=== PATIENT | male | born 1955 | race Caucasian/White ===

== ENCOUNTER 2017-02-09 22:15 | Observation (INO) | payer MEDICARE, MEDICAID ==
[2017-02-09] MEDS ORDERED: Sodium Chloride 0.9% 1,000 ML IV STA (22:55)
--- NOTE | 2017-02-09 23:02 | ED PDOC ---
HPI: Abdomen Time Seen by Provider: 02/09/17 22:43 Chief Complaint (Nursing): Abdominal Pain Chief Complaint (Provider): abdominal pain History Per: Patient History/Exam Limitations: no limitations Onset/Duration Of Symptoms: Days (1) Current Symptoms Are (Timing): Still Present Location Of Pain/Discomfort: RUQ, Epigastric, LUQ Associated Symptoms: Nausea, Vomiting. denies: Fever, Chills Last Bowel Movement: Today Additional History Per: Patient Additional Complaint(s): 61 y/o male history of gastritis, hypertension, diabetes, asthma presents with upper abdominal pain x 1 day. Associated nausea, vomiting x 1. Patient states he ate spicy food last night for dinner, unknown if this triggered his pain. Denies fever, chest pain, shortness of breath, palpitations, changes in bowel movements, dyruia, hematuria. Past Medical History Reviewed: Historical Data, Nursing Documentation, Vital Signs Vital Signs: Last Vital Signs Temp 98.2 F 02/09/17 22:21 Pulse 86 02/09/17 22:21 Resp 16 02/09/17 22:21 BP 144/90 02/09/17 22:21 Pulse Ox 99 02/10/17 02:04 - Medical History PMH: Asthma, Diabetes, Gastritis, HTN - Surgical History Surgical History: No Surg Hx - Family History Family History: States: Unknown Family Hx - Living Arrangements Living Arrangements: With Family - Social History Alcohol: Occasional Drugs: Denies - Home Medications Home Medications: Ambulatory Orders Medication Instructions Recorded Amlodipine/Valsartan [Exforge 1 tab PO DAILY 02/10/17 10-320 mg Tablet] Aspirin [Lo-Dose Aspirin EC] 81 mg PO DAILY 02/10/17 Lansoprazole 30 mg PO DAILY 02/10/17 glyBURIDE [Micronase] 10 mg PO DAILY 02/10/17 - Allergies Allergies/Adverse Reactions: Allergies Allergy/AdvReac Type Severity Reaction Status Date / Time No Known Allergies Allergy Verified 02/09/17 22:30 Review of Systems ROS Statement: Except As Marked, All Systems Reviewed And Found Negative Gastrointestinal: Positive for: Nausea, Vomiting, Abdominal Pain Physical Exam - Reviewed Nursing Documentation Reviewed: Yes Vital Signs Reviewed: Yes - Physical Exam Appears: Positive for: Well, Non-toxic, No Acute Distress Head Exam: Positive for: ATRAUMATIC, NORMAL INSPECTION, NORMOCEPHALIC Skin: Positive for: Normal Color Eye Exam: Positive for: Normal appearance ENT: Positive for: Normal ENT Inspection Cardiovascular/Chest: Positive for: Regular Rate, Rhythm Respiratory: Positive for: Normal Breath Sounds Gastrointestinal/Abdominal: Positive for: Bowel Sounds, Soft, Tenderness (RUQ, epigastric, LUQ) Back: Positive for: Normal Inspection Extremity: Positive for: Normal ROM Neurologic/Psych: Positive for: Alert, Oriented - Laboratory Results Result Diagrams: 02/09/17 23:41 02/09/17 23:41 - ECG ECG: Positive for: Viewed By Me (reviewed by ED attending) ECG Rhythm: Positive for: Sinus Rhythm O2 Sat by Pulse Oximetry: 99 Pulse Ox Interpretation: Normal - Radiology X-Ray: Viewed By Me X-Ray Interpretation: No Acute Disease - Progress ED Course And Treament: labs, u/s, IV fluids, IV morphine, IV pepcid, IV zofran EXAM: US Abdomen Limited, Right Upper Quadrant CLINICAL HISTORY: 61 years old, male; Pain; Abdominal pain; Epigastric; Additional info: Abd pain , vomiting TECHNIQUE: Real-time ultrasound of the right upper quadrant with image documentation. COMPARISON: No relevant prior studies available. FINDINGS: Liver: The liver is heterogeneous in echogenicity and size measuring 18 cm in longitudinal dimension. No intrahepatic bile duct dilation. The main portal vein is patent. Gallbladder: No acute findings. No gallstones. Common bile duct: No stones. No dilation measuring 4 mm. Pancreas: Visualization of the pancreas is limited by overlying bowel gas. Right kidney: Unremarkable in echogenicity and size measuring 11.6 x 4.7 x 4.5 cm. No obstructing stones. No solid mass. No hydronephrosis. IMPRESSION: Fatty infiltration of an enlarged liver, as detailed above. Limited evaluation of the pancreas, secondary to overlying bowel gas On re-eval, patient still in pain; will order CT abd/pelvis as lipase elevated Patient states no recent alcohol intake EXAM: CT Abdomen and Pelvis With Intravenous Contrast CLINICAL HISTORY: 61 years old, male; Pain; Abdominal pain; Generalized; Additional info: Abd pain , elevated lipase TECHNIQUE: Axial computed tomography images of the abdomen and pelvis with intravenous contrast. This CT exam was performed using one or more of the following dose reduction techniques : automated exposure control, adjustment of the mA and/or kV according to patient size, and/ or use of iterative reconstruction technique. Coronal and sagittal reformatted images were created and reviewed. CONTRAST: 95 mL of [id number] administered intravenously. COMPARISON: CT ABD/PELV W/IV CONTR 06/11/2012 3:48:27 AM FINDINGS: Lower thorax: Trace bibasilar atelectasis. ABDOMEN: Liver: No acute findings. Gallbladder and bile ducts: The gallbladder is decompressed, without calcified stones. No significant intra- or extrahepatic biliary ductal dilation. Pancreas: Trace infiltration of the peripancreatic fat involving the head of the pancreas, less prominent than on previous examination performed in 06/11/2012. The pancreas otherwise enhances homogeneously, without ductal dilation or a discrete mass. Spleen: No acute findings. Adrenals: No acute findings. Kidneys and ureters: No acute findings. No hydronephrosis or renal calculi. No discrete solid mass. PELVIS: Bladder: No acute findings. Reproductive: No acute findings. Appendix: The air filled appendix is of normal caliber (series 3, image 114; series 601, image 55) . ABDOMEN and PELVIS: Stomach and bowel: No obstruction. No mucosal thickening. Peritoneum: No significant fluid collection. No free air. Lymph nodes: No pathologically enlarged lymph nodes. Vasculature: Calcified atherosclerotic disease. Bones: No acute fracture. IMPRESSION: Findings suggesting acute pancreatitis, involving the head of the pancreas, less severe than on previous examination performed in 2011. Additional nonacute findings, as detailed above. Patient educated on findings, to be admitted. Case discussed with Dr. Sherman, who admits for Dr. Jess Johns, for admission. Patient now tells nurse he had "5 Bernard drinks" over the weekend. Disposition - Clinical Impression Clinical Impression: Acute pancreatitis - Patient ED Disposition Is Patient to be Admitted: Yes - Disposition Disposition Time: 02:04 Condition: FAIR - Pt Status Changed To: Hospital Disposition Of: Inpatient - Admit Certification Admit to Inpatient:: After my assessment, the patient will require hospitalization for at least two midnights. This is because of the severity of symptoms shown, intensity of services needed, and/or the medical risk in this patient being treated as an outpatient.
--- NOTE | 2017-02-09 23:31 | US ---
EXAM: US Abdomen Limited, Right Upper Quadrant CLINICAL HISTORY: 61 years old, male; Pain; Abdominal pain; Epigastric; Additional info: Abd pain, vomiting TECHNIQUE: Real-time ultrasound of the right upper quadrant with image documentation. COMPARISON: No relevant prior studies available. FINDINGS: Liver: The liver is heterogeneous in echogenicity and size measuring 18 cm in longitudinal dimension. No intrahepatic bile duct dilation. The main portal vein is patent. Gallbladder: No acute findings. No gallstones. Common bile duct: No stones. No dilation measuring 4 mm. Pancreas: Visualization of the pancreas is limited by overlying bowel gas. Right kidney: Unremarkable in echogenicity and size measuring 11.6 x 4.7 x 4.5 cm. No obstructing stones. No solid mass. No hydronephrosis. IMPRESSION: Fatty infiltration of an enlarged liver, as detailed above. Limited evaluation of the pancreas, secondary to overlying bowel gas.
[2017-02-09 23:44] LABS: BASO # 0.1 K/uL (0.0-0.2); BASO % 0.3 % (0.0-2.0); EOS % 0.3 % (0.0-4.0); LYMPH # 1.6 K/uL (1.0-4.3); LYMPH % 10.9 % (20.0-40.0); MEAN CELL VOLUME 91.7 fl (80.0-94.0); MEAN CORPUSCULAR HEMOGLOBIN 32.3 pg (27.0-31.0); MEAN CORPUSCULAR HGB CONC 35.2 g/dL (33.0-37.0); MEAN PLATELET VOLUME 9.8 fl (7.2-11.7); MONO # 0.9 K/uL (0.0-0.8); MONO % 6.1 % (0.0-10.0); NEUT # 12.3 K/uL (1.8-7.0); NEUT % 82.4 % (50.0-75.0); RED CELL DISTRIBUTION WIDTH 12.9 % (11.5-14.5); WHITE BLOOD COUNT 14.9 K/uL (4.8-10.8)
[2017-02-09 23:54] LABS: ALB/GLOB RATIO 1.5 (1.0-2.1); ALKALINE PHOSPHATASE 80 U/L (38-126); ALT/SGPT 41 U/L (21-72); AST/SGOT 36 U/L (17-59); BILIRUBIN,TOTAL 1.2 mg/dl (0.2-1.3); BLOOD UREA NITROGEN 6 mg/dl (9-20); CALCIUM 10.3 mg/dL (8.4-10.2); CARBON DIOXIDE 24 mmol/L (22-30); CHLORIDE 91 mmol/L (98-107); GFR AFRICAN-AMERICAN > 60; GLUCOSE,RANDOM 180 mg/dL (75-110); LIPASE 493 U/L (23-300); POTASSIUM 4.2 MMOL/L (3.6-5.0); SODIUM 132 mmol/l (132-148); TOTAL PROTEIN 8.1 G/DL (6.3-8.2)
[2017-02-10] MEDS ORDERED: Iohexol 300 100 ML IJ ONE (00:40)
[2017-02-10] MEDS ORDERED: Sodium Chloride 0.9% 50 ML IV ONE (00:41)
[2017-02-10 01:06] LABS: URINE BILIRUBIN NEGATIVE (NEGATIVE); URINE BLOOD NEGATIVE (NEGATIVE); URINE COLOR STRAW (YELLOW); URINE GLUCOSE (UA) >=500 mg/dL (Normal); URINE KETONE TRACE mg/dL (NEGATIVE); URINE LEUKOCYTE ESTERASE NEG Leu/uL (Negative); URINE PROTEIN NEGATIVE (NEGATIVE); URINE UROBILINOGEN 0.2-1.0 mg/dL (0.2-1.0); WBC URINE < 1 /hpf (0-5)
--- NOTE | 2017-02-10 01:24 | CT ---
EXAM: CT Abdomen and Pelvis With Intravenous Contrast CLINICAL HISTORY: 61 years old, male; Pain; Abdominal pain; Generalized; Additional info: Abd pain, elevated lipase TECHNIQUE: Axial computed tomography images of the abdomen and pelvis with intravenous contrast. This CT exam was performed using one or more of the following dose reduction techniques: automated exposure control, adjustment of the mA and/or kV according to patient size, and/or use of iterative reconstruction technique. Coronal and sagittal reformatted images were created and reviewed. CONTRAST: 95 mL of [id number] administered intravenously. COMPARISON: CT ABD/PELV W/IV CONTR 06/11/2012 3:48:27 AM FINDINGS: Lower thorax: Trace bibasilar atelectasis. ABDOMEN: Liver: No acute findings. Gallbladder and bile ducts: The gallbladder is decompressed, without calcified stones. No significant intra- or extrahepatic biliary ductal dilation. Pancreas: Trace infiltration of the peripancreatic fat involving the head of the pancreas, less prominent than on previous examination performed in 06/11/2012. The pancreas otherwise enhances homogeneously, without ductal dilation or a discrete mass. Spleen: No acute findings. Adrenals: No acute findings. Kidneys and ureters: No acute findings. No hydronephrosis or renal calculi. No discrete solid mass. PELVIS: Bladder: No acute findings. Reproductive: No acute findings. Appendix: The air filled appendix is of normal caliber (series 3, image 114; series 601, image 55) . ABDOMEN and PELVIS: Stomach and bowel: No obstruction. No mucosal thickening. Peritoneum: No significant fluid collection. No free air. Lymph nodes: No pathologically enlarged lymph nodes. Vasculature: Calcified atherosclerotic disease. Bones: No acute fracture. IMPRESSION: Findings suggesting acute pancreatitis, involving the head of the pancreas, less severe than on previous examination performed in 2011. Additional nonacute findings, as detailed above.
[2017-02-10 02:05] LABS: ALCOHOL SERUM < 10 mg/dl (0-10)
[2017-02-10] MEDS: Lactated Ringer's 1,000 ML IV SCH ×6 (02:24→22:30)
[2017-02-10] MEDS: Sodium Chloride 0.9% 1,000 ML IV SCH ×3 (06:18→17:49)
[2017-02-10] MEDS: Insulin Regular 100 units/ml SC SCH ×4 (06:42→22:30)
[2017-02-10 07:07] LABS: HEMATOCRIT 40.9 % (35.0-51.0); MEAN CELL VOLUME 91.2 fl (80.0-94.0); MEAN CORPUSCULAR HEMOGLOBIN 31.9 pg (27.0-31.0); RED CELL DISTRIBUTION WIDTH 12.5 % (11.5-14.5); WHITE BLOOD COUNT 12.3 K/uL (4.8-10.8)
[2017-02-10 07:08] LABS: ALB/GLOB RATIO 1.5 (1.0-2.1); ALKALINE PHOSPHATASE 77 U/L (38-126); ALT/SGPT 36 U/L (21-72); AMYLASE 68 U/L (30-110); AST/SGOT 28 U/L (17-59); BILIRUBIN,TOTAL 1.2 mg/dl (0.2-1.3); BLOOD UREA NITROGEN 4 mg/dl (9-20); CALCIUM 9.7 mg/dL (8.4-10.2); CARBON DIOXIDE 27 mmol/L (22-30); CHLORIDE 94 mmol/L (98-107); CHOLESTEROL 252 mg/dL (0-199); GFR AFRICAN-AMERICAN > 60; GLUCOSE,RANDOM 142 mg/dL (75-110); LIPASE 333 U/L (23-300); SODIUM 131 mmol/l (132-148); TOTAL PROTEIN 7.2 G/DL (6.3-8.2)
[2017-02-10 07:21] LABS: T4 7.24 ug/dl (5.5-11.0)
--- NOTE | 2017-02-10 08:52 | CP.PCM.HP ---
History of Present Illness - History of Present Illness History of Present Illness: 61yo M with PMHx asthma, HTN, HLD, DM admitted for pancreatitis. c/o generalized abd pain x1 day a/w nausea/vomiting. Last episode of pancreatitis 4 years ago. Last EtOH use 2 weeks ago. PMHx: as above SHx: denies FHx: mother-pancreatic Ca, Father-HTN,DM Allergies: NKDA Social hx: denies x3 currently ED course: lipase 493 CBC, CMP IVF NS 1L bolus Zofran 4mg PO x1 pepcid 20mg IV x1 morphine 2mg IV x1 morphine 4mg IV x1 CT abd/pelvis- acute pancreatitis US abd RUQ-fatty liver UA neg Urine tox +cocaine alcohol quant neg troponin neg Present on Admission - Present on Admission Any Indicators Present on Admission: No Review of Systems - Constitutional Constitutional: absent: Chills, Fever - Cardiovascular Cardiovascular: absent: Chest Pain - Respiratory Respiratory: absent: Dyspnea - Gastrointestinal Gastrointestinal: Abdominal Pain, Nausea, Vomiting - Genitourinary Genitourinary: absent: Dysuria, Hematuria - Musculoskeletal Musculoskeletal: absent: Back Pain - Neurological Neurological: absent: Headaches Past Patient History - Past Medical History & Family History Past Medical History?: Yes - Past Social History Smoking Status: Former Smoker - CARDIAC Hx Cardiac Disorders: Yes (HTN) Hx Hypertension: Yes - PULMONARY Hx Respiratory Disorders: Yes Hx Asthma: Yes - NEUROLOGICAL Hx Neurological Disorder: No - HEENT Hx HEENT Problems: No - RENAL Hx Chronic Kidney Disease: No - ENDOCRINE/METABOLIC Hx Endocrine Disorders: Yes (DM, pancreatitis) Hx Diabetes Mellitus Type 2: Yes - HEMATOLOGICAL/ONCOLOGICAL Hx Blood Disorders: No - INTEGUMENTARY Hx Dermatological Problems: No - MUSCULOSKELETAL/RHEUMATOLOGICAL Hx Falls: No - GASTROINTESTINAL Hx Gastritis: Yes Hx Pancreatitis: Yes - GENITOURINARY/GYNECOLOGICAL Hx Genitourinary Disorders: No - PSYCHIATRIC Hx Substance Use: No - SURGICAL HISTORY Other/Comment: perirectal abcess - ANESTHESIA Hx Anesthesia: Yes Hx Anesthesia Reactions: No Meds Allergies/Adverse Reactions: Allergies Allergy/AdvReac Type Severity Reaction Status Date / Time No Known Allergies Allergy Verified 02/09/17 22:30 Physical Exam - Constitutional Appears: Non-toxic, No Acute Distress - Head Exam Head Exam: ATRAUMATIC, NORMAL INSPECTION - Eye Exam Eye Exam: Normal appearance - Neck Exam Neck exam: Positive for: Normal Inspection - Respiratory Exam Respiratory Exam: Clear to Auscultation Bilateral - Cardiovascular Exam Cardiovascular Exam: REGULAR RHYTHM - GI/Abdominal Exam GI & Abdominal Exam: Normal Bowel Sounds, Soft, Tenderness. absent: Distended, Guarding, Rebound, Rigid - Extremities Exam Extremities exam: Positive for: normal inspection. Negative for: pedal edema - Neurological Exam Neurological exam: Alert, Oriented x3 - Skin Skin Exam: Dry, Warm Results - Vital Signs Recent Vital Signs: Last Vital Signs Temp 98.6 F 02/10/17 08:29 Pulse 79 02/10/17 08:29 Resp 18 02/10/17 08:29 BP 160/90 H 02/10/17 08:29 Pulse Ox 95 02/10/17 08:29 - Labs Result Diagrams: 02/10/17 06:15 02/10/17 06:15 Labs: Laboratory Results - last 24 hr 02/10/17 02/10/17 02/10/17 01:58 06:00 06:15 WBC 12.3 H RBC 4.48 Hgb 14.3 Hct 40.9 MCV 91.2 MCH 31.9 H MCHC 35.0 RDW 12.5 Plt Count 164 Sodium Potassium Chloride Carbon Dioxide Anion Gap BUN Creatinine Est GFR ( Amer) Est GFR (Non-Af Amer) POC Glucose (mg/dL) 136 H Random Glucose Calcium Total Bilirubin AST ALT Alkaline Phosphatase Troponin I < 0.0120 Total Protein Albumin Globulin Albumin/Globulin Ratio Triglycerides Cholesterol LDL Cholesterol Direct HDL Cholesterol Amylase Lipase Thyroxine (T4) Alcohol, Quantitative < 10 02/10/17 06:15 WBC RBC Hgb Hct MCV MCH MCHC RDW Plt Count Sodium 131 L Potassium 4.0 Chloride 94 L Carbon Dioxide 27 Anion Gap 14 BUN 4 L Creatinine 0.6 L Est GFR ( Amer) > 60 Est GFR (Non-Af Amer) > 60 POC Glucose (mg/dL) Random Glucose 142 H Calcium 9.7 Total Bilirubin 1.2 AST 28 ALT 36 Alkaline Phosphatase 77 Troponin I Total Protein 7.2 Albumin 4.3 Globulin 2.9 Albumin/Globulin Ratio 1.5 Triglycerides 379 H Cholesterol 252 H LDL Cholesterol Direct 147 H HDL Cholesterol 64 Amylase 68 Lipase 333 H Thyroxine (T4) 7.24 Alcohol, Quantitative Assessment & Plan - Assessment and Plan (Free Text) Assessment: 61yo M with PMHx asthma, HTN, HLD, DM, GERD admitted for pancreatitis pancreatitis -CT abd/pelvis- acute pancreatitis -US abd RUQ-fatty liver -amylase/lipase trending down -MIVF NS -Zofran 4mg PO -morphine 2mg q4hr -NPO GERD -pepcid IV asthma -albuterol prn HTN -amlodipine -valsartan HLD -lipid panel -10yr ASCVD risk 31% -start atorvastatin 40mg daily -ASA DM -accuchecks -SSI DVT ppx -lovenox Decision To Admit - Pt Status Changed To: Hospital Disposition Of: Inpatient - Admit Certification Admit to Inpatient:: After my assessment, the patient will require hospitalization for at least two midnights. This is because of the severity of symptoms shown, intensity of services needed, and/or the medical risk in this patient being treated as an outpatient. - . Bed Request Type: Med/Surg Admitting Physician: Pardeep Sherman
[2017-02-10] MEDS ORDERED: Patient's Own Med (Amlodipine/Valsartan [Exforge 10-320 Mg Tablet] 1 TAB) PO SCH (09:00)
[2017-02-10] MEDS ORDERED: Glucagon Recombinant 1 mg Inj IM PRN (10:45)
[2017-02-10] MEDS ORDERED: Dextrose 50% SYRINGE Inj (50 ml) IVP PRN (10:45)
[2017-02-10] MEDS ORDERED: Albuterol 0.083% Inhal Sol (2.5 mg/3 mL) UD INH PRN (13:19)
--- NOTE | 2017-02-10 13:58 | RAD ---
HISTORY: Admission. Portable study 02:05. COMPARISON: 04/01/2010. FINDINGS: LUNGS: No active pulmonary disease. PLEURA: No significant pleural effusion identified, no pneumothorax apparent. CARDIOVASCULAR: No radiographic findings to suggest acute or significant cardiovascular disease. OSSEOUS STRUCTURES: No significant abnormalities. VISUALIZED UPPER ABDOMEN: Normal. OTHER FINDINGS: None. IMPRESSION: No active disease. No significant interval change compared to the prior examination(s).
[2017-02-11] MEDS: Sodium Chloride 0.9% 1,000 ML IV SCH (00:35)
[2017-02-11 00:39] VITALS: BP 167/90; PULSE 81; RESP 19; TEMP 98.8; O2SAT 95
[2017-02-11] MEDS: Lactated Ringer's 1,000 ML IV SCH ×2 (01:40→06:32)
[2017-02-11] MEDS: Insulin Regular 100 units/ml SC SCH (06:33)
[2017-02-11 07:04] LABS: MEAN CELL VOLUME 93.4 fl (80.0-94.0); MEAN CORPUSCULAR HEMOGLOBIN 32.3 pg (27.0-31.0); MEAN CORPUSCULAR HGB CONC 34.6 g/dL (33.0-37.0); WHITE BLOOD COUNT 9.2 K/uL (4.8-10.8)
[2017-02-11 07:12] LABS: ALB/GLOB RATIO 1.3 (1.0-2.1); ALKALINE PHOSPHATASE 78 U/L (38-126); ALT/SGPT 30 U/L (21-72); AST/SGOT 27 U/L (17-59); BILIRUBIN,TOTAL 1.4 mg/dl (0.2-1.3); BLOOD UREA NITROGEN 8 mg/dl (9-20); CARBON DIOXIDE 25 mmol/L (22-30); CHLORIDE 101 mmol/L (98-107); GFR AFRICAN-AMERICAN > 60; GLUCOSE,RANDOM 188 mg/dL (75-110); LIPASE 323 U/L (23-300); POTASSIUM 3.9 MMOL/L (3.6-5.0); SODIUM 139 mmol/l (132-148); TOTAL PROTEIN 7.6 G/DL (6.3-8.2)
[2017-02-11 07:33] LABS: THYROID STIMULATING HORMONE 1.99 mIU/ML (0.46-4.68)
--- NOTE | 2017-02-11 08:27 | CP.PCM.DIS ---
Provider - Provider Date of Admission: 02/10/17 13:07 Attending physician: Pardeep Sherman MD Time Spent in preparation of Discharge (in minutes): 20 Hospital Course - Lab Results Lab Results: Most Recent Lab Values WBC 9.2 K/uL (4.8-10.8) 02/11/17 06:25 RBC 4.71 Mil/uL (4.40-5.90) 02/11/17 06:25 Hgb 15.2 g/dL (12.0-18.0) 02/11/17 06:25 Hct 44.0 % (35.0-51.0) 02/11/17 06:25 MCV 93.4 fl (80.0-94.0) D 02/11/17 06:25 MCH 32.3 pg (27.0-31.0) H 02/11/17 06:25 MCHC 34.6 g/dL (33.0-37.0) 02/11/17 06:25 RDW 13.0 % (11.5-14.5) 02/11/17 06:25 Plt Count 161 K/uL (130-400) 02/11/17 06:25 MPV 9.8 fl (7.2-11.7) 02/09/17 23:41 Neut % (Auto) 82.4 % (50.0-75.0) H 02/09/17 23:41 Lymph % (Auto) 10.9 % (20.0-40.0) L 02/09/17 23:41 [place] % (Auto) 6.1 % (0.0-10.0) 02/09/17 23:41 Eos % (Auto) 0.3 % (0.0-4.0) 02/09/17 23:41 Baso % (Auto) 0.3 % (0.0-2.0) 02/09/17 23:41 Neut # 12.3 K/uL (1.8-7.0) H 02/09/17 23:41 Lymph # 1.6 K/uL (1.0-4.3) 02/09/17 23:41 [place] # 0.9 K/uL (0.0-0.8) H 02/09/17 23:41 Eos # 0.0 K/uL (0.0-0.7) 02/09/17 23:41 Baso # 0.1 K/uL (0.0-0.2) 02/09/17 23:41 ESR 6 mm/hr (0-20) 02/10/17 06:15 Sodium 139 mmol/l (132-148) 02/11/17 06:25 Potassium 3.9 MMOL/L (3.6-5.0) 02/11/17 06:25 Chloride 101 mmol/L (98-107) 02/11/17 06:25 Carbon Dioxide 25 mmol/L (22-30) 02/11/17 06:25 Anion Gap 16 (10-20) 02/11/17 06:25 BUN 8 mg/dl (9-20) L 02/11/17 06:25 Creatinine 0.8 mg/dL (0.8-1.5) 02/11/17 06:25 Est GFR ( Amer) > 60 02/11/17 06:25 Est GFR (Non-Af Amer) > 60 02/11/17 06:25 POC Glucose (mg/dL) 172 mg/dL (65-110) H 02/11/17 05:26 Random Glucose 188 mg/dL (75-110) H 02/11/17 06:25 Calcium 10.0 mg/dL (8.4-10.2) 02/11/17 06:25 Total Bilirubin 1.4 mg/dl (0.2-1.3) H 02/11/17 06:25 AST 27 U/L (17-59) 02/11/17 06:25 ALT 30 U/L (21-72) 02/11/17 06:25 Alkaline Phosphatase 78 U/L (38-126) 02/11/17 06:25 Troponin I < 0.0120 ng/mL (0.00-0.120) 02/10/17 01:58 Total Protein 7.6 G/DL (6.3-8.2) 02/11/17 06:25 Albumin 4.3 g/dL (3.5-5.0) 02/11/17 06:25 Globulin 3.3 gm/dL (2.2-3.9) 02/11/17 06:25 Albumin/Globulin Ratio 1.3 (1.0-2.1) 02/11/17 06:25 Triglycerides 379 mg/DL (0-149) H 02/10/17 06:15 Cholesterol 252 mg/dL (0-199) H 02/10/17 06:15 LDL Cholesterol Direct 147 mg/dL (0-129) H 02/10/17 06:15 HDL Cholesterol 64 MG/DL (30-70) 02/10/17 06:15 Amylase 68 U/L (30-110) 02/10/17 06:15 Lipase 323 U/L (23-300) H 02/11/17 06:25 Vitamin B12 376 pg/mL (239-931) 02/11/17 06:25 Thyroxine (T4) 7.24 ug/dl (5.5-11.0) 02/10/17 06:15 TSH 3rd Generation 1.99 mIU/ML (0.46-4.68) 02/11/17 06:25 Urine Color Straw (YELLOW) 02/10/17 00:57 Urine Clarity Clear (Clear) 02/10/17 00:57 Urine pH 7.0 (5.0-8.0) 02/10/17 00:57 Ur Specific [place] 1.009 (1.003-1.030) 02/10/17 00:57 Urine Protein Negative mg/dL (NEGATIVE) 02/10/17 00:57 Urine Glucose (UA) >=500 mg/dL (Normal) 02/10/17 00:57 Urine Ketones Trace mg/dL (NEGATIVE) 02/10/17 00:57 Urine Blood Negative (NEGATIVE) 02/10/17 00:57 Urine Nitrate Negative (NEGATIVE) 02/10/17 00:57 Urine Bilirubin Negative (NEGATIVE) 02/10/17 00:57 Urine Urobilinogen 0.2-1.0 mg/dL (0.2-1.0) 02/10/17 00:57 Ur Leukocyte Esterase Neg [place]/uL (Negative) 02/10/17 00:57 Urine Microscopic WBC < 1 /hpf (0-5) 02/10/17 00:57 Urine Opiates Screen Negative (NEGATIVE) 02/10/17 00:57 Urine Methadone Screen Negative (NEGATIVE) 02/10/17 00:57 Ur Barbiturates Screen Negative (NEGATIVE) 02/10/17 00:57 Ur Phencyclidine Scrn Negative (NEGATIVE) 02/10/17 00:57 Ur Amphetamines Screen Negative (NEGATIVE) 02/10/17 00:57 U Benzodiazepines Scrn Negative (NEGATIVE) 02/10/17 00:57 U Oth Cocaine Metabols Positive (NEGATIVE) H 02/10/17 00:57 U Cannabinoids Screen Negative (NEGATIVE) 02/10/17 00:57 Alcohol, Quantitative < 10 mg/dl (0-10) 02/10/17 01:58 - Hospital Course Hospital Course: 61yo M with PMHx asthma, HTN, HLD, DM, GERD admitted for pancreatitis. CT abd/ pelvis showed acute pancreatitis. US abd RUQ showed fatty liver. initial lipase was mildly elevated with amylase/lipase trending down with MIVF NS and pt NPO. Pain was well controlled during admission with morphine. Based on lipid panel, pt had 10yr ASCVD risk 31% and atorvastatin 40mg daily started. GI c/s for management of pancreatitis. Pt left AMA as he had matters at home he had to attend to. Pt didn't want to get evaluated by GI. Pt wanted to FU with PCP instead. Discharge Exam - Head Exam Head Exam: ATRAUMATIC, NORMAL INSPECTION - Eye Exam Eye Exam: Normal appearance - ENT Exam ENT Exam: Mucous Membranes Moist - Neck Exam Neck exam: Normal Inspection - Respiratory Exam Respiratory Exam: NORMAL BREATHING PATTERN - Cardiovascular Exam Cardiovascular Exam: REGULAR RHYTHM - GI/Abdominal Exam GI & Abdominal Exam: Normal Bowel Sounds, Soft, Tenderness (minimal). absent: Distended, Guarding, Rebound - Extremities Exam Extremities exam: normal inspection - Neurological Exam Neurological exam: Alert, Oriented x3 - Skin Skin Exam: Dry, Warm Discharge Plan - Follow Up Plan Condition: FAIR Disposition: AGAINST MEDICAL ADVICE Instructions: Pancreatitis (DC) Additional Instructions: FU with PCP
[2017-02-11] MEDS ORDERED: Enoxaparin 40 mg Syringe SC SCH (09:00)
--- NOTE | 2017-02-11 10:14 | CARD ---
APPROVED REPORT EKG Measurement Heart [id number] CO [id number] <Conclusion> Sinus rhythm with premature atrial complexes Otherwise normal ECG
== END 2017-02-11 08:27 | disposition left against medical advice (07) ==
LOC: H.ER 22:15 → H.ERHOLD 02-10 01:48 → H.MEDSURG1 02-10 02:50 → INTOOBSV 02-10 13:07 → OBSVTOIN 02-10 13:07
PROVIDERS: ADMIT Internal Medicine; ATTEND Internal Medicine
DX: K85.90 Acute pancreatitis without necrosis or infection, unspecified (principal); K76.0 Fatty (change of) liver, not elsewhere classified; I10 Essential (primary) hypertension; E11.9 Type 2 diabetes mellitus without complications; E78.5 Hyperlipidemia, unspecified; J45.909 Unspecified asthma, uncomplicated; K21.9 Gastro-esophageal reflux disease without esophagitis; K29.70 Gastritis, unspecified, without bleeding
CPT/HCPCS: 36415; 71010; 74177; 76705; 80053; 80061; 81003; 82150; 82607; 82948; 83690; 84436; 84443; 84484; 85025; 85027; 85651; 93005; 96361; 96374; 96375; 96376; 99284; C9113; G0378; G0480; J2270; J2405; J7040; J7120; Q9967